=== PATIENT | male | born 1955 | race Caucasian/White ===

== ENCOUNTER 2017-08-28 03:23 | Emergency (ER) | payer BC ==
[2017-08-28] MEDS ORDERED: ACETAMINOPHEN TAB 500 MG TAB PO STA (03:41)
[2017-08-28] MEDS ORDERED: IPRATROPIUM-ALBUTEROL 3 ML NEB INHALATION STA (03:41)
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
--- NOTE | 2017-08-28 04:15 | XR ---
EXAM: XR Chest, 2 Views CLINICAL HISTORY: Pain TECHNIQUE: Frontal and lateral views of the chest. COMPARISON: No relevant prior studies available. FINDINGS: Prominence interstitial markings with the mild hazy appearance to the right lung base. This may represent early infiltrate. The costophrenic angles are sharp IMPRESSION: Hazy appearance right lower lobe raises the possibility of early infiltrate. No evidence for pleural effusion
[2017-08-28] MEDS ORDERED: AZITHROMYCIN 500 MG TAB PO STA (04:23)
[2017-08-28 04:39] VITALS: BP 128/77; PULSE 74; TEMP 100.2
[2017-08-28 04:40] VITALS: RESP 18
== END 2017-08-28 04:45 | disposition home or self-care (01) ==
LOC: EC 03:23
DX: J18.9 Pneumonia, unspecified organism (principal)
CPT/HCPCS: 71046; 87502; 94640; 99284

== ENCOUNTER → 2023-10-26 | Outpatient (CLI) | payer MEDICARE ==
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
== END | disposition home or self-care (01) ==
LOC: RADXRMAIN 10:54
PROVIDERS: ATTEND Family Medicine
DX: Z18.10 Retained metal fragments, unspecified (principal)
CPT/HCPCS: 72072